=== PATIENT | female | born 1965 | race Caucasian/White ===

== ENCOUNTER 2018-02-20 16:05 | Emergency (ER) | payer BC, OTHER ==
--- OUTSIDE RECORDS SUMMARY | 2018-02-20 16:11 | XMS REPORT ---
:1965 External Reference #:[id number] Author Organization [employer] Address [address] [place] [address] [place] [address] Phone [phone] Care Team Providers Name Role Phone August Swift MD Primary Care Physician Unavailable Payers Type Date Identification Numbers Payment Provider Subscriber Commercial Effective: Policy Number: [employer] Cathy Gaffney 2017 [id number] PayID: [id number] [address] [address] [place] [address] Workers Compensation Onset: 2017 Policy Number: [id number] [employer] Cathy Gaffney [employer] Name: fax# [phone] [address] PayID: [id number] [place] [address] Problems Description No Information Family History Date Family Member(s) Problem(s) Comments General Diabetes General Heart Disease General Cancer Social History Type Date Description Comments 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 Smoking Patient has never smoked Allergies, Adverse Reactions, Alerts Date Description Reaction Status Severity Comments 11/27/2017 NKDA active Medications Medication Date Status Form Strength Qnty SIG Indications Ordering Provider Citalopram Active Tablets 10mg 1 by mouth Unknown Hydrobromide 000 every day Divalproex Active Tablets ER 250mg 1 by mouth Unknown Sodium ER 000 24HR every night at bedtime for 1 week then 2 every night at bedtime Vital Signs Date Vital Result Comment 01/31/2018 Height 68 inches 5'8" Heart Rate 65 /min BP Systolic 118 mmHg BP Diastolic 64 mmHg Respiratory Rate 16 /min Body Temperature 98.0 F Pain Level 7 01/01/2018 Height 68 inches 5'8" Weight 170.00 lb Heart Rate 76 /min BP Systolic 122 mmHg BP Diastolic 70 mmHg Pain Level 4 or 5 BMI (Body Mass Index) 25.8 kg/m2 11/27/2017 Height 68 inches 5'8" Weight 174.00 lb Heart Rate 56 /min BP Systolic 130 mmHg BP Diastolic 84 mmHg Respiratory Rate 16 /min Body Temperature 97.7 F Pain Level 6 6 right hip BMI (Body Mass Index) 26.5 kg/m2 Results Description No Information Procedures Description No Information Encounters Type Date Location Provider CPT E/M Dx Office Visit 01/01/2018 [facility], [address] M54.2 3:30p Atiya KNUTSON M54.6 R53.1 M54.2 Office Visit 01/01/2018 3:15p [facility], [address] M25.511 Of Atiya KNUTSON M75.51 S46.011D M54.2 Office Visit 11/27/2017 10:45a [facility], [address] M25.511 Of Atiya Lambert75.51 W18.30xA M25.511 Plan of Care Future Appointment(s):04/02/2018 11:15 am - [facility] MD at [facility]..04/02/2018 11:30 am - [facility]el Vel[facility] MD at [facility].01/31/2018 - Nigel Velarde MDS46.011D Strain of musc/tend the rotator cuff of right shoulder, subsFollow up:Follow up: 2 ytljnoN55.551 Pain in right hip
--- OUTSIDE RECORDS SUMMARY | 2018-02-20 16:11 | XMS REPORT ---
:1965 External Reference #:[id number] Author Organization [employer] Address [address] [place] [address] [place] [address] Phone [phone] Care Team Providers Name Role Phone August Swift MD Primary Care Physician Unavailable Payers Type Date Identification Numbers Payment Provider Subscriber Commercial Effective: Policy Number: [employer] Cathy Gaffney 2017 [id number] PayID: [id number] [address] [address] [place] [address] Workers Compensation Onset: 2017 Policy Number: [id number] [employer] Catyh Gaffney [employer] Name: fax# [phone] [address] PayID: [id number] [place] [address] Problems Description No Information Family History Date [...] Visit 01/01/2018 [facility], [address] M54.2 3:30p Atiya KNUTSON M54.6 R53.1 M54.2 Office Visit 01/01/2018 3:15p [facility], [address] M25.511 Of Atiya KNUTSON M75.51 S46.011D M54.2 Office Visit 11/27/2017 10:45a [facility], [address] M25.511 Of Atiya Lambert75.51 W18.30xA M25.511 Plan of Care Future Appointment(s):04/02/2018 11:30 am - [facility]/31/2018 - Nig[facility] Velarde MDS46.011D Strain of musc/tend the rotator cuff of right shoulder, subsFollow up:Follow up: 2 xjuvvtE31.551 Pain in right hip
--- NOTE | 2018-02-20 16:24 | UC ---
Ear Complaint HPI - HPI Summary HPI Summary: 52 yo female presents with b/l earache and decreased hearing for the last 2-3 days. Admits she has been cleaning her ears with cue-tips daily. Denies fever, chills, headache, or dizziness. - History of Current Complaint Chief Complaint: UCEar Stated Complaint: EARS CLOGGED Time Seen by Provider: 02/20/18 16:19 Hx Obtained From: Patient Onset/Duration: Gradual Onset Severity Initially: Mild Severity Currently: Mild Pain Intensity: 4 Pain Scale Used: 0-10 Numeric - Allergies/Home Medications Allergies/Adverse Reactions: Allergies Allergy/AdvReac Type Severity Reaction Status Date / Time No Known Allergies Allergy Verified 02/20/18 16:13 PMH/Surg Hx/FS Hx/Imm Hx Psychological History: Anxiety, Bipolar Disorder - Surgical History Surgical History: Yes Surgery Procedure, Year, and Place: T&A - Family History Known Family History: Positive: None - Social History Occupation: Employed Full-time Lives: With Family Alcohol Use: Occasionally Substance Use Type: None Smoking Status (MU): Former Smoker Review of Systems Constitutional: Negative Skin: Negative Eyes: Negative ENT: Ear Ache Respiratory: Negative Cardiovascular: Negative Neurovascular: Negative Neurological: Negative Psychological: Negative All Other Systems Reviewed And Are Negative: Yes Physical Exam - Summary Physical Exam Summary: GENERAL: NAD. WDWN. No pain distress. SKIN: No rashes, sores, lesions, or open wounds. HEENT: Head: AT/NC Eyes: EOM intact. Conjunctiva clear without inflammation or discharge. Ears: Hearing grossly normal. B/L cerumen impaction. AFTER disimpaction: TMs intact, no bulging, erythema, or edema. Nose: Nasal mucosa pink and moist. NTTP maxillary and frontal sinus. Throat: Posterior oropharynx without exudates, erythema, or tonsillar enlargement. Uvula midline. NECK: Supple. Nontender. No lymphadenopathy. CHEST: No accessory muscle use. Breathing comfortably and in no distress. CV: Pulses intact. Brisk cap refill. NEURO: Alert. CN II-XII grossly intact. PSYCH: Age appropriate behavior. Triage Information Reviewed: Yes Vital Signs: Initial Vital Signs Temp 98 F 02/20/18 16:10 Pulse 73 02/20/18 16:10 Resp 15 02/20/18 16:10 BP 131/93 07/04/18 16:10 Pulse Ox 100 02/20/18 16:10 Ear Complaint Course/Dx - Course Course Of Treatment: Cerumen impaction. Ear irrigation performed and cerumen removed easily. Pt tolerated well and experienced significant relief of symptoms. - Differential Dx/Diagnosis Provider Diagnoses: Ceruman impaction Discharge - Sign-Out/Discharge Documenting (check all that apply): Discharge/Admit/Transfer - Discharge Plan Condition: Stable Disposition: HOME Patient Education Materials: Cerumen Impaction (ED) Referrals: August Swift MD [Primary Care Provider] - Additional Instructions: If you develop a fever, shortness of breath, chest pain, new or worsening symptoms - please call your PCP or go to the ED. Your blood pressure was high at todays visit. Please see your primary provider within 4 weeks for recheck and re-evaluation. - Billing Disposition and Condition Condition: STABLE Disposition: Home
[2018-02-20 16:47] VITALS: BP 130/89
== END 2018-02-20 16:50 | disposition home or self-care (01) ==
LOC: UCEAST 16:05
DX: H61.23 Impacted cerumen, bilateral (principal); F31.9 Bipolar disorder, unspecified; Z87.891 Personal history of nicotine dependence
CPT/HCPCS: 99213; G0463